=== PATIENT | male | born 1990 | race Hispanic/Latino ===

== ENCOUNTER 2022-05-05 21:16 | Emergency (ER) | payer OTHER ==
--- OUTSIDE RECORDS SUMMARY | 2022-05-05 21:22 | XMS REPORT | Continuity of Care Document ---
:1990 Author Organization [facility] t Address [address] [place] [place] [address] Care Team Providers Name Role Phone SHINE ANTONIO Primary Care Physician Unavailable [email or web address] Attending Clinician Unavailable SHINE ANTONIO Attending Clinician Unavailable DARI POLLARD Attending Clinician Unavailable CHAVA TILLMAN Attending Clinician Unavailable DANYEL RETANA Attending Clinician Unavailable Danyel Dias Attending Clinician ZANDRA PEOPLES Attending Clinician Unavailable Alfonso Lau MD Attending Clinician Vale Retana MD Attending Clinician VALE RETANA Attending Clinician Unavailable Yamil Brown DO Attending Clinician Physician, No Primary or Family Admitting Clinician UnavailDANYEL Ross Admitting Clinician Unavailable Payers Payer Name Policy Type Policy Number Effective Date Expiration Date S ource PLANNED P [id number] 2016 [employer] 00:00:00 INC.-Medical Problems Condition Condition Condition Status Onset Resolution Last Treating Co mments Source Name Details Category Date Date Treatment Clinician Date No known No known Disease Unive rs active active ity of problems problems [facility] Allergies, Adverse Reactions, Alerts Allergy Allergy Status Severity Reaction(s) Onset Inactive Treating Comm ents Source Name Type Date Date Clinician No Known DA Active [facility] 03-24 [facility] 00:00: e 00 [facility] No Known DA Active U [facility] Allergie 09-16 [facility] 00:00: e 00 [facility] No Known DA Active U [facility] Allergie 09-16 [facility] 00:00: e 00 [facility] No Known DA Active U 2018-09 [facility] Allergie 10-23 [facility] 00:00: e 00 [facility] No Known DA Active U 2018-09 [facility] Allergie 10-23 [facility] 00:00: e 00 [facility] NO KNOWN Drug Active Univers ALLERGIE Class ity of S [facility] NO KNOWN Allergy Active [facility] Social History Social Habit Start Date Stop Date Quantity Comments Source Exposure to Not sure [facility] SARS-CoV-2 (event) Medica l Branch Sex Assigned At [birth year] [facility] 00:00:00 00:00:00 [facility] Smoking Status Start Date Stop Date Source Unknown if ever smoked [facility] Medications Ordered Filled Start Stop Current Ordering Indication Dosage Frequency Signature Comments Components Source Medication Medication Date Date Medication? Clinician (SIG) Name Name codeine-gua No 10mL 10 mL, Uni vers ifenesin 11-11 Oral, ity of (ROBITUSSIN 04:15: 03:18 [place] 10-100 00 :00 dose, On Medic al mg/5 mL Fri Branch oral 11/10/21 at solution 10 2215, ALIZE mL NaCl 0.9% 2021- No 1000mL at 999 Uni vers (NS) bolus 11-11 mL/hr, ity of infusion 03:00: 03:20 1,000 mL, Benjamin as 1,000 mL 00 :00 IV Medical Infusion, Branch ONCE, 1 dose, On 11/10/21 at 2100, ALIZE aspirin 2021- No 325mg 325 mg, Unive rs tablet 325 11-11 Oral, ity of mg 03:00: 02:08 ONCE, 1 [place] 00 :00 dose, On Medical Fri Branch 11/10/21 at 2100, ALIZE ofloxacin 2019-09 Yes [id number] 1[drp] Place 1 Univers 0.3 % 0-13 Drop in ity of ophthalmic 00:00: [place] solution 00 4 (four) Medical times Branch daily. ofloxacin 2019-09 Yes [id number] 1[drp] Place 1 Univers 0.3 % 0-13 Drop in ity of ophthalmic 00:00: [place] solution 00 4 (four) Medical times Branch daily. tetracaine 2019-09 2020- No 1[drp] 1 Drop, U nivers (PONTOCAINE 0-11 -11 Left Eye, it y of ) 0.5 % 02:00: 01:17 ONCE, 1 [place] ophthalmic 00 :00 dose, Sat Medi basim drops 1 06/25/20 Branch Drop at 2100, ALIZE fluorescein 2019-09 2020- No 1{strip 1 Strip, Univers (FUL-ZURI) 0-11 11 } Left Eye, ity of ophthalmic 02:00: 01:17 ONCE, 1 [place] as strip 1 00 :00 dose, Sat Medical Strip 06/25/20 Branch at 2100, ALIZE
Fa culty member approving Non-formul selvin medication : VALE RETANA
Reason for non-formul selvin use: ALLERGY TO FORMULARY ALTERNATIV ES polymyxin B 2019-09 Yes [id number] 1[drp] Place 1 Univers sulf-trimet 0-10 [id number] Drop in ity of hoprim 00:00: left eye [place] (POLYTRIM) 00 every 4 Medica l 10,000 (four) Branch unit- 1 hours. mg/mL ophthalmic drops diclofenac 2019-09 Yes [id number] 1[drp] Place 1 Univers 0.1 % 0-10 [id number] Drop in ity of ophthalmic 00:00: left eye 4 [place] solution 00 (four) Medical times Branch daily. polymyxin B 2019-09 Yes [id number] 1[drp] Place 1 Univers sulf-trimet 0-10 [id number] Drop in ity of hoprim 00:00: left eye [place] (POLYTRIM) 00 every 4 Medica l 10,000 (four) Branch unit- 1 hours. mg/mL ophthalmic drops diclofenac 2019- Yes [id number] 1[drp] Place 1 Univers 0.1 % 0-10 [id number] Drop in ity of ophthalmic 00:00: left eye [place] solution 00 (four) Medical times Branch daily. polymyxin B 2019-09 Yes [id number] 1[drp] Place 1 Univers sulf-trimet 0-10 [id number] Drop in ity of hoprim 00:00: left eye [place] (POLYTRIM) 00 every 4 Medica l 10,000 ([facility]) Branch unit- 1 hours. mg/mL ophthalmic drops diclofenac 2019-09 Yes [id number] 1[drp] Place 1 Univers 0.1 % 0-10 [id number] Drop in ity of ophthalmic 00:00: left eye [place] solution 00 (four) Medical times Branch daily. methylpredn 2019-09 2020- No 125mg 125 mg, U nivers isolone sod 0-02 10-02 Slow IV ity of succ 01:30: 02:21 Push, [place] (SOLU-MEDRO 00 :00 ONCE, 1 Medic al L) dose, [facility] Branch injection 06/16/20 at 125 mg 2029, STAT predniSONE 2019-09 Yes [id number] 2 - 20 mg Univers 20 mg 0-01 tabs po x ity of tablet 00:00: [address] diazePAM 2019- Yes [id number] 5mg Take 1 Un joesph (VALIUM) 5 0-01 tablet by ity of mg tablet 00:00: mouth 3 [place] (three) Medical times [place] daily. predniSONE 2019- Yes [id number] 2 - 20 mg Univers 20 mg 0-01 tabs po x ity of tablet 00:00: [address] Branch diazePAM 2019- Yes [id number] 5mg Take 1 Un joesph (VALIUM) 5 0-01 tablet by ity of mg tablet 00:00: mouth 3 [place] (three) Medical times Branch daily. predniSONE 2019- Yes [id number] 2 - 20 mg Univers 20 mg 0-01 tabs po x ity of tablet 00:00: [address] diazePAM 2019- Yes [id number] 5mg Take 1 Un joesph (VALIUM) 5 0-01 tablet by ity of mg tablet 00:00: mouth 3 [place] (three) Medical times Branch daily. predniSONE 2019-09 Yes [id number] 2 - 20 mg Univers 20 mg 0-01 tabs po x ity of tablet 00:00: 5 days [place] [address] Medical Branch diazePAM 2019-09 Yes [id number] 5mg Take 1 Un joesph (VALIUM) 5 0-01 tablet by ity of mg tablet 00:00: mouth 3 [place] [address] (three) Medical times Branch daily. Vital Signs Vital Name Observation Time Observation Value Comments Source Systolic blood 2021-11-11 05:30:00 134 mm[Hg] Univer sity of [facility] Diastolic blood 2021-11-11 05:30:00 85 mm[Hg] Unive rsity of [facility] Heart rate 2021-11-11 05:30:00 90 /min Universi ty [facility] Respiratory rate 2021-11-11 05:30:00 15 /min [facility] saturation in 2021-11-11 05:30:00 98 /min University of Arterial blood by [facility] Pulse oximetry Branch Body temperature 2021-11-11 01:44:00 36.67 Mere [facility] Body height 2021-11-11 01:44:00 172.7 cm Universi ty [facility] Body weight 2021-11-11 01:44:00 [facility] BMI 2021-11-11 01:44:00 42.57 kg/m2 Universi [facility] HEIGHT 2020-07-01 17:35:00 172.7 cm WEIGHT 2020-07-01 17:35:00 122.471 kg HEIGHT 2020-07-01 17:35:00 172.7 cm WEIGHT 2020-07-01 17:35:00 122.471 kg Systolic blood 2020 03:00:00 119 mm[Hg] Univer sity of [facility] Diastolic blood 2020 03:00:00 74 mm[Hg] Unive rsity of [facility] Heart rate 2020 03:00:00 87 /min Universi ty [facility] Respiratory rate 2020 03:00:00 17 /min [facility] O[facility] saturation in 2020 03:00:00 98 /min University of Arterial blood by [facility] [place] [facility] basim Pulse oximetry Branch Body temperature 2020-06-28 23:58:00 37.06 Mere Univ ersity [facility] [place] [facility] Body height 2020-06-28 23:58:00 172.7 cm Universi ty [facility] [place] [facility] Body weight 2020-06-28 23:58:00 122.471 kg Universi ty [facility] [place] [facility] BMI 2020-06-28 23:58:00 41.05 kg/m2 Universi ty [facility] [place] [facility] Systolic blood 2020 03:00:00 119 mm[Hg] Univer sity of pressure [place] [facility] Diastolic blood 2020 03:00:00 74 mm[Hg] Unive rsity of pressure [place] [facility] Heart rate 2020 03:00:00 87 /min Universi ty [facility] [place] [facility] Respiratory rate 2020 03:00:00 17 /min Univ ersity [facility] [place] [facility] Oxygen saturation in 2020 03:00:00 98 /min University of Arterial blood by [facility] [place] [facility] basim Pulse oximetry Branch Body temperature 2020-06-28 23:58:00 37.06 Mere Univ ersity [facility] [place] [facility] Body height 2020-06-28 23:58:00 172.7 cm Universi ty [facility] [place] [facility] Body weight 2020-06-28 23:58:00 122.471 kg Universi ty [facility] [place] [facility] BMI 2020-06-28 23:58:00 41.05 kg/m2 Universi ty [facility] [place] [facility] Systolic blood 2020-06-26 02:04:55 166 mm[Hg] Univer sity of pressure [place] [facility] Diastolic blood 2020-06-26 02:04:55 90 mm[Hg] Unive rsity of pressure [place] [facility] Heart rate 2020-06-26 02:04:55 90 /min Universi ty [facility] [place] [facility] Body temperature 2020-06-26 02:04:55 36.83 Mere Univ ersity [facility] [place] [facility] Respiratory rate 2020-06-26 02:04:55 22 /min Univ ers[facility] [place] [facility] Oxygen saturation in 2020-06-26 02:04:55 99 /min University of Arterial blood by [facility] [place] [facility] basim Pulse oximetry Branch Body height 2020-06-26 00:08:00 175.3 cm Universi ty [facility] [place] [facility] Body weight 2020-06-26 00:08:00 122.471 kg Universi ty [facility] [place] [facility] BMI 2020-06-26 00:08:00 39.87 kg/m2 Universi ty [facility] [place] [facility] Systolic blood 2020-06-26 02:04:55 166 mm[Hg] Univer sity of pressure [place] [facility] Diastolic blood 2020-06-26 02:04:55 90 mm[Hg] Unive rsity of pressure [place] [facility] Heart rate 2020-06-26 02:04:55 90 /min Universi ty [facility] [place] [facility] Body temperature 2020-06-26 02:04:55 36.83 Mere Univ ersity [facility] [place] [facility] Respiratory rate 2020-06-26 02:04:55 22 /min Univ ers[facility] [place] [facility] Oxygen saturation in 2020-06-26 02:04:55 99 /min University of Arterial blood by [facility] [place] [facility] basim Pulse oximetry Branch Body height 2020-06-26 00:08:00 175.3 cm [facility]i ty [facility] [place] [facility] Body weight 2020-06-26 00:08:00 122.471 kg Universi ty [facility] [place] [facility] BMI 2020-06-26 00:08:00 39.87 kg/m2 Universi ty [facility] [place] [facility] Systolic blood 2020-06-17 03:22:44 139 mm[Hg] Univer sity of pressure [place] [facility] Diastolic blood 2020-06-17 03:22:44 85 mm[Hg] Unive rsity of pressure [place] [facility] Heart rate 2020-06-17 03:22:44 87 /min Universi ty [facility] [place] [facility] Respiratory rate 2020-06-17 03:22:44 15 /min Univ ersity [facility] [place] [facility] Oxygen saturation in 2020-06-17 03:22:44 99 /min University of Arterial blood by [place] [employer] basim Pulse oximetry Branch Body temperature 2020-06-17 00:08:00 36.78 Mere Univ ersity [facility] [place] [facility] Body height 2020-06-17 00:08:00 172.7 cm Universi ty [facility] [place] [facility] Body weight 2020-06-17 00:08:00 122.471 kg Universi ty [facility] [place] [facility] BMI 2020-06-17 00:08:00 41.05 kg/m2 [facility]i [facility] [place] [facility] Systolic blood 2020-06-17 03:22:44 139 mm[Hg] Univer sity of pressure [place] [facility] Diastolic blood 2020-06-17 03:22:44 85 mm[Hg] [facility] Heart rate 2020-06-17 03:22:44 87 /min [facility] Respiratory rate 2020-06-17 03:22:44 15 /min [facility] Oxygen saturation in 2020-06-17 03:22:44 99 /min [facility] Arterial blood by [facility] Pulse oximetry Branch Body temperature 2020-06-17 00:08:00 36.78 Mere [facility] Body height 2020-06-17 00:08:00 172.7 cm [facility] Body weight 2020-06-17 00:08:00 122.471 kg [facility] BMI 2020-06-17 00:08:00 41.05 kg/m2 [facility] Procedures Procedure Date / Time Performing Clinician Source Performed TROPONIN I 2021-11-11 04:48:00 Danyel [facility] COVID-19 (ID NOW RAPID 2021-11-11 03:20:00 Danyel Retana [facility] TESTING) [facility] URINE DRUG (IMMUNOASSAY) 2021-11-11 02:27:00 Venkatesh Retana [facility] DRUG Medical [facility] SCREEN W/O REFLEX XR CHEST 1 VW 2021-11-11 02:09:17 Danyel [facility] TROPONIN I 2021-11-11 02:03:00 Danyel [facility] COMP. METABOLIC PANEL 2021-11-11 02:03:00 Danyel Retana [facility] ([id number]) [facility] D-DIMER 2021-11-11 02:03:00 Danyel [facility] CBC WITH DIFF 2021-11-11 02:02:00 Danyel [facility] COMP. METABOLIC PANEL 2020 01:36:00 Alfonso Lau [facility] ([id number]) [facility] CBC WITH DIFF 2020 01:36:00 Alfonso Lau [facility] URINALYSIS 2020 01:36:00 Alfonso Lau [facility] EXTRA TUBE URINE CULTURE 2020 01:36:00 Alfonso Lau [facility] TROPONIN I 2020-06-17 02:21:00 Kevin [facility] HEPATIC FUNCTION PANEL 2020-06-17 02:21:00 Kevin [facility] ([id number]) (ALB,T.PRO,BILI Medical Branch T,BU/BC,ALT,AST,ALK PHOS) BASIC METABOLIC PANEL 2020-06-17 02:21:00 Kevin [facility] (NA, K, CL, CO2, Medical Branch GLUCOSE, BUN, CREATININE, CA) CBC WITH DIFF 2020-06-17 02:21:00 Kevin [facility] EKG-12 LEAD 2020-06-17 00:19:31 Kevin [facility] Encounters Start End Encounter Admission Attending Care Care Encounter Source Date/Time Date/Time Type Type Clinicians Facility Department ID 2021 [facility] [id number] [facility] 20:16:40 [id number] [facility] 2020-09-29 Inpatient [facility] [id number] [facility] 12:35:[id number] [facility] 2019-09-18 Inpatient [facility] [id number] [facility] 02:42:00 [facility] 2019-09-16 Inpatient [facility] ALL[facility] [id number] [facility] 15:22:00 [facility] 2022-04-17 2022-04-17 Outpatient PACO, [facility] [id number] [place] 00:00:00 00:00:00 [facility] 2022-03-29 2022-03-29 Outpatient PACO, [facility] [id number] [place] 00:00:00 00:00:00 [facility] 2022-03-22 2022-03-22 Outpatient PACO, [facility] [id number] [place] 00:00:00 00:00:00 [facility] 2022-02-19 2022-02-19 Outpatient PACO, [facility] [id number] Gerald 07:08:25 23:59:00 [facility] 2022-02-19 2022-02-19 Outpatient [facility] [id number] [place] 00:00:00 00:00:00 [facility] 2022-02-05 2022-02-05 Outpatient [facility] [id number] [place] 10:23:56 11:02:32 [facility] 2022-01-12 2022-01-12 Emergency LATRICE, [facility] MED [id number] [place] 17:34:00 17:35:00 [facility] 2022-01-12 2022-01-12 Emergency [facility] [id number] [place] 16:34:45 17:02:23 [facility] 2022-01-09 2022-01-09 Outpatient [facility] [id number] [place] 13:41:24 13:56:42 [facility] 2022-01-09 2022-01-09 Outpatient [facility] [id number] [place] 13:28:03 13:31:31 [facility] 2022-01-09 2022-01-09 Outpatient [facility] [id number] [place] 12:36:07 12:36:07 [facility] 2022-01-09 2022-01-09 Outpatient 3 PACO, [facility] [id number] [place] 12:36:07 12:36:07 [facility] 2022-01-09 2022-01-09 Outpatient [facility] [id number] [place] 00:00:00 00:00:00 [facility] 2022-01-04 2022-01-04 Outpatient [facility] [id number] [place] 11:24:33 12:34:24 [facility] 2022-01-04 2022-01-04 Outpatient 3 [facility] [id number] [place] 11:24:33 12:34:24 [facility] 2022-01-04 2022-01-04 Outpatient [facility] [id number] [place] 00:00:00 00:00:00 [facility] 2021-12-13 2021-12-[address] [facility] [id number] [place] 05:22:00 05:23:00 CHAVA Simon 2021-11-10 2021-11-10 Emergency X MUTENDEREKI [facility] ERT [id number] Univers 19:39:00 23:42:00 , DANYEL ity of [facility] 2021-11-10 2021-11-10 Emergency Mutendereki [facility] [id number] Univers 19:39:00 23:42:00 , Danyel HEALTH [id number] ity [place] [id number] [address] ([facility]) 2020-07-01 2020-07-01 Emergency ER SLE Emergency [id number] [facility] 17:26:00 17:26:00 2020-06-28 2020-06-28 Emergency [facility] [id number] Univers 19:00:00 23:14:00 [facility] [id number] [id number] [id number] [address] ([facility]) 2020-06-28 2020-06-28 Emergency [facility] [id number] 19:00:00 23:14:00 [facility] [id number] [place] [id number] [place] [id number] [address]) 2020-06-28 2020-06-28 Emergency X [facility] ERT [id number] Univers 19:00:00 19:00:00 ity of [facility] 2020-06-25 2020-06-25 Emergency [facility] [id number] Univers 19:10:00 21:06:00 [facility] Health [id number] [id number] [id number] [address] ([facility]) 2020-06-25 2020-06-25 Emergency [facility], [facility] [id number] 19:10:00 21:06:00 [facility] [id number] [place] [id number] [place] [id number] [place] [address] ([facility]) 2020-06-25 2020-06-25 Emergency X MAZIN [facility] ERT [id number] Univers 19:10:00 19:10:00 VALE [facility] 2020-06-16 2020-06-16 Emergency Kevin CAANDREW [id number] Univers 19:18:00 23:33:00 [facility] [id number] [id number] [id number] [facility] 014 Branch ([facility]) 2020-06-16 2020-06-16 Emergency Kevin CAANDREW [id number] 19:18:00 23:33:00 [facility] [id number] [place] [id number] [place] [id number] [facility] 014 ([facility]) 2020-06-16 2020-06-16 Emergency X [facility] ERT [id number] Univers 18:45:00 18:45:00 [facility] 2018-10-24 2018-10-24 Emergency [facility] [id number] [place] 13:33:32 13:33:32 Health Results Test Description Test Time Test Comments Results Result Comments Source RPR Ser-Titr 2022-01-09 22:39:53 Test Item Value Reference Range Interpretation Comme nts T pallidum Ab Ser Ql Aggl (test code = 27093-2) NEGATIVE Negati ve, Equivocal Reagin+T pallidum IgG+IgM SerPl-Imp (test code = NEGATIVE Negat steven 17425-7) SARS-CoV-2 ORF1ab Resp Ql KIRA+[id number] 19:45:45 Test Item Value Reference Range Interpretation Comments Symptomatic as Yes defined by CDC? (test code = 33717-2) Date of Symptom Onset [id number]:0 (test code = 70113-8) 0:00Z Hospitalized? (test No code = 05925-8) ICU? (test code = No 50632-9) Employed in No Healthcare? (test code = 60473-9) Resident in a No congregate care setting (including nursing homes, residential care for people with intellectual and developmental disabilities, psychiatric treatment facilities, group homes, board and care homes, homeless mcfp, foster care or other): (test code = 85319-8) SARS-CoV-2 ORF1ab NOT DETECTED Not Detected INTERPRETA TION: No Resp Ql KIRA+probe detectable levels (test code = 36849-5) of MARA S-CoV-2 Coronavirus (COVID-19) were present in this patient's sampl e by this test. A not detected result does not exclude the possibility of active infectio n with this virus due to other factors that ma y affect the resu lts such as a poorl y collected sampl e, viral titers be low the limit of detection of th e assay, and the infrequent possibility of inhibitors in t he sample. This result should b e interpreted in conjunction wit h clinical, radiographic, a nd other laborator y findings and should not be u sed as the sole indicator of active infectio n with SARS-CoV-2 Coronavirus (COVID-19). COMMENT: This [employer] SARS-CoV-2 molecular diagnostic assay utilizes [employer] Mediated Amplification (TMA) technology to rapidly detect the SARS-CoV-2 (COVID-19) virus from respiratory samples. In accordance with the FDA's guidance document "Policy for Diagnostic Tests for Coronavirus Disease- 2019 during the Public Health Emergency", this test was developed, and its performance characteristics were verified by the [facility] molecular diagnostics laboratory and is authorized for clinical diagnostic use. This laboratory is certified under the Clinical Laboratory Improvement Amendments (CLIA) as qualified to perform high complexity clinical laboratory testing.TROPONIN [id number] 05:22:18 Test Item Value Reference Interpretation Comments Range TROPONIN I (test 0.005 ng/mL See_Comment [Automated code = 9907424110) message] The system which generated this result transmitted reference range : <=0.034. The reference range was not used to interpret this result as normal/abnormal . MARIANN (test code = Reference (Normal) MARIANN) Range (defined by the 99th percentile reference limit): <= 0.034 ng/mL Note: Cardiac troponin begins to rise 3-4 hours after the onset of ischemia. Repeat in 4-6 hours if the sample was drawn within 3-4 hours of the onset of the symptom and found normal. Diagnosis of myocardial injury is made with acute changes in cTn concentrations with at least one serial sample above the 99th percentile upper reference limit (URL), taken together with the patient's clinical presentation. Biotin has been reported to cause a negative bias, interpret results relative to patient's use of biotin. Lab Interpretation Normal (test code = 89269-0) [facility] [id number] 02:53:20 Test Item Value Reference Interpretation Comments Range TROPONIN I (test 0.003 ng/mL See_Comment [Automated code = [id number]) message] The system which generated this result transmitted reference range : <=0.034. The reference range was not used to interpret this result as normal/abnormal . MARIANN (test code = Reference (Normal) MARIANN) Range (defined by the 99th percentile reference limit): <= 0.034 ng/mL Note: Cardiac troponin begins to rise 3-4 hours after the onset of ischemia. Repeat in 4-6 hours if the sample was drawn within 3-4 hours of the onset of the symptom and found normal. Diagnosis of myocardial injury is made with acute changes in cTn concentrations with at least one serial sample above the 99th percentile upper reference limit (URL), taken together with the patient's clinical presentation. Biotin has been reported to cause a negative bias, interpret results relative to patient's use of biotin. Lab Interpretation Normal (test code = 06348-6) [facility]OL[facility] PAN[facility] (00532)2021-11-11 02:43:16 Test Item Value Reference Range Interpretation Comments NA (test code = 136 mmol/L 135-145 8934395073) K (test code = 3.8 mmol/L 3.5-5.0 1601239270) CL (test code = 101 mmol/L 98-108 9147617966) CO2 TOTAL (test code = 22 mmol/L 23-31 L 4626312546) AGAP (test code = 2-16 5197218672) BUN (test code = 11 mg/dL 7-23 3001196728) GLUCOSE (test code = 157 mg/dL 70-110 H 4518516445) CREATININE (test code = 0.87 mg/dL 0.60-1.25 1230778629) TOTAL BILI (test code = 0.8 mg/dL 0.1-1.0 1949593735) CALCIUM (test code = 9.3 mg/dL 8.6-10.6 4980084415) T PROTEIN (test code = 7.9 g/dL 6.3-8.2 8528386739) ALBUMIN (test code = 4.8 g/dL 3.5-5.0 9864646798) ALK PHOS (test code = 108 U/L 34-122 9038306918) ALTv (test code = 50 U/L 5-50 1742-6) AST(SGOT) (test code = 46 U/L 13-40 H 2848344789) eGFR (test code = mL/min/1.73m2 3055667724) MARIANN (test code = MARIANN) Association of Glomerular Filtration Rate (GFR) and Staging of Kidney Disease* + --+ --+ ------+| GFR (mL/min/1.73 m2) ?| With Kidney Damage ?| ?Without Kidney Damage+ --------+ --------+ +| ?>90 ?| ?Stage one ?| ? Normal ?+ ---+ ---+ -------+| ?60-89 ?| ?Stage two ?| ? Decreased GFR ? + --+ --+ ------+| ?30-59 ?| ?Stage three ?| ? Stage three ? + --+ --+ ------+| ?15-29 ?| ?Stage four ? | ? Stage four ?+ ---+ ---+ -------+| ?<15 (or dialysis) ? ?| ?Stage five ? | ? Stage five ?+ ---+ ---+ -------+ *Each stage assumes the associated GFR level has been in effect for at least three months. ?Stages 1 to 5, with or without kidney disease, indicate chronic kidney disease. Notes: Determination of stages one and two (with eGFR >59mL/min/1.73 m2) requires estimation of kidney damage for at least three months as defined by structural or functional abnormalities of the kidney, manifested by either:Pathological abnormalities or Markers of kidney damage (including abnormalities in the composition of the blood or urine or abnormalities in imaging tests). Lab Interpretation Abnormal (test code = 64338-5) [facility]-[id number] 02:32:59 Test Item Value Reference Interpretation Comments Range D-DIMER (test code = See_Comment [Autom ated 0658243440) message] The system which generated this result transmitted reference range : <0.50 ?g/mL (FEU). The reference range was not used to interpret this result as normal/abnormal . MARIANN (test code = This test may be MARIANN) used in conjunction with a clinical pretest probability (PTP) assessment model to exclude venous thromboembolism (VTE) in patients suspected of deep venous thrombosis (DVT) and pulmonary embolism (PE) A D-Dimer value less than 0.50 ?g/ml (FEU) has a negative predicative value of 96 to 100% (95% CI)and 97 to 100% (95% CI) as an aid in the diagnosis of deep vein thrombosis (DVT) and pulmonary embolism when there is low or moderate pretest probability of PE or DVT. D-Dimer values are expressed in initial fibrinogen equivalent units (FEU)" The assay results should be used with other information, including the clinical context, in forming a diagnosis. Lab Interpretation Normal (test code = 26952-0) [facility] WITH [id number] 02:21:15 Test Item Value Reference Range Interpretation Comments WBC (test code = See_Comment [Automated 1490-2) message] The sy stem which generated this result transmitted reference range : 4.20 - 10.70 10*3/?L. The reference range was not used to interpret this result as normal/abnormal . RBC (test code = See_Comment [Automated 458-8) message] The sy stem which generated this result transmitted reference range : 4.26 - 5.52 10*6/?L. The reference range was not used to interpret this result as normal/abnormal . HGB (test code = 16.5 g/dL 12.2-16.4 H 718-7) HCT (test code = 48.7 % 38.4-49.3 4544-3) MCV (test code = 92.2 fL 81.7-95.6 787-2) MCH (test code = 31.3 pg 26.1-32.7 785-6) MCHC (test code = 33.9 g/dL 31.2-35.0 786-4) RDW-SD (test code = 41.7 fL 38.5-51.6 61492-2) RDW-CV (test code = 12.2 % 12.1-15.4 788-0) PLT (test code = See_Comment [Automated 777-3) message] The sy stem which generated this result transmitted reference range : 150 - 328 10*3/ ?L. The reference r gus was not used to interpret this result as normal/abnormal . MPV (test code = 10.5 fL 9.8-13.0 24975-9) NRBC/100 WBC (test See_Comment [Automat ed code = 2309072480) message] The system which generated this result transmitted reference range : 0.0 - 10.0 /100 WBCs. The refer ence range was not u sed to interpret th is result as normal/abnormal . NRBC x10^3 (test code <0.01 See_Comment [Auto mated = 3842109120) message] The s ystem which generated this result transmitted reference range : 10*3/?L. The reference range was not used to interpret this result as normal/abnormal . GRAN MAT (NEUT) % 81.4 % (test code = 770-8) IMM GRAN % (test code 0.40 % = 6733486928) LYMPH % (test code = 12.0 % 736-9) MONO % (test code = 4.5 % 5905-5) EOS % (test code = 1.0 % 713-8) BASO % (test code = 0.7 % 706-2) GRAN MAT x10^3(ANC) 8.58 10*3/uL 1.99-6.95 H (test code = 9451078281) IMM GRAN x10^3 (test 0.04 10*3/uL 0.00-0.06 code = 3312731106) LYMPH x10^3 (test code 1.26 10*3/uL 1.09-3.23 = 731-0) MONO x10^3 (test code 0.47 10*3/uL 0.36-1.02 = 742-7) EOS x10^3 (test code = 0.10 10*3/uL 0.06-0.53 711-2) BASO x10^3 (test code 0.07 10*3/uL 0.01-0.09 = 704-7) Lab Interpretation Abnormal (test code = 88283-2) [facility] W WO [id number] 15:01:00 [facility]Name: DANYEL BARTH : 1990 Sex: M Name: DANYEL BARTH [facility] : 1990 Age/S: 30 / M [address] [facility] Unit [facility]: [id number] Loc: [place] [address] Phys: Manuel Candelaria NP Acct: [id number] Dis Date: Status: REG ER PHONE #: [phone] Exam Date: 09/29/2020 1440 FAX #: [phone] Reason: RIGHT UPPER AND LOWER ABD WITH RIGHT FLANK PAIN EXAMS: CPT CODE: [id number] CT ABD PELVIS W WO CONT 71144 REASON FOR EXAM: RIGHT UPPER AND LOWER ABD WITH RIGHT FLANK PAIN EXAM ORDER DATE: 09/29/2020 12:45 PM Ordering M.DKiersten: Manuel Candelaria NP PROCEDURE: Axial CT images were acquired through the abdomen/pelvis at 5 mm intervals. Sagittal and coronal reformatted images were generated. Automated exposure control was utilized for this reduction. Phases of contrast: venous and delayed. Additionally precontrast images were also obtained COMPARISON: Abdominal ultrasound September 18, 2019 FINDINGS: Visualized thorax: Normal Hepatobiliary system: Hepatic steatosis. Gallbladder is within normal limits Pancreas: Normal Spleen: Normal Adrenal glands: Normal Genitourinary system: Precontrast images demonstrate a punctate stone in theurinary bladder at the ureterovesical junction (). Additionally there is mild right-sided hydroureteronephrosis. Reproductive organs are within normal limits Gastrointestinal tract and appendix: Mild colonic diverticulosis without diverticulitis. Stomach and small bowel and appendix are within normal limits Abdominal vascular structures: Normal Peritoneum and retroperitoneum: No free fluid or free air. No omental or mesenteric masses. No abnormal lymph nodes. 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 Location: [facility] at 1501 Reported and signed by: [facility]: Manuel Candelaria NP Technologist:Johanny Zhao RT(R); MARGRET Guidry CTDI: DLP: Trnscb Date/Time: 09/29 (1501) [email or web address] Orig Print D/T: S: 09/29/2020 (1505) PAGE 2 Signed ReportBASIC METABOLIC [id number] 13:36:00 Test Item Value Reference Range Interpretation Comments SODIUM (test code = 139 mmol/L 136-145 N NA) POTASSIUM (test code 4.1 mmol/L 3.5-5.1 N = K) CHLORIDE (test code = 106.0 mmol/L 98-107 N CL) CARBON DIOXIDE (test 27.0 mmol/L 21-32 N code = CO2) ANION GAP (test code 10.1 10-20 N = GAP) GLUCOSE (test code = 121 mg/dL 74-106 H GLU) BLOOD UREA NITROGEN 16 mg/dL 7-18 N (test code = BUN) GLOMERULAR FILTRATION > 60 mL/min >=60 Estima mary GFR by RATE (test code = using Jaison fied MDRD GFR) formula.Chronic kidney disease is defined as eith er kidney damageor GFR <60 mL/min/1.73 m2 for >3 months. CREATININE (test code 1.10 mg/dL 0.7-1.3 N = CREAT) BUN/CREATININE RATIO 14.2 10-20 N (test code = BUN/CREA) CALCIUM (test code = 8.7 mg/dL 8.5-10.1 N CA) HEPATIC FUNCTION [id number] 13:36:00 Test Item Value Reference Range Interpretation Comments TOTAL PROTEIN (test 7.8 gram/dL 6.4-8.2 N code = PROT) ALBUMIN (test code = 3.9 g/dL 3.4-5.0 N ALB) GLOBULIN (test code = 3.9 gram/dL 2.7-4.2 N GLOB) ALBUMIN/GLOBULIN RATIO 1.0 0.75-1.50 N (test code = A/G) BILIRUBIN TOTAL (test 0.30 mg/dL 0.0-1.0 N code = BILT) BILIRUBIN DIRECT (test 0.13 mg/dL 0.0-0.20 N code = BILD) SGOT/AST (test code = 24 IUnit/L 15-37 N AST) SGPT/ALT (test code = 46 IUnit/L 12-78 N ALT) ALKALINE PHOSPHATASE 145 IUnit/L 45-117 H Note change in TOTAL (test code = reference range due ALKP) to change in reagent. [id number] 13:36:00 Test Item Value Reference Range Interpretation Comments LIPASE (test code = LIP) 121 U/L 73.0-393.0 N BASIC METABOLIC [id number] 13:27:00 Test Item Value Reference Range Interpretation Comments SODIUM (test code = NA) 139 mmol/L 136-145 N POTASSIUM (test code = K) 4.1 mmol/L 3.5-5.1 N CHLORIDE (test code = CL) 106.0 mmol/L 98-107 N CARBON DIOXIDE (test code = CO2) mmol/L 21-32 ANION GAP (test code = GAP) 10-20 GLUCOSE (test code = GLU) mg/dL 74-106 BLOOD UREA NITROGEN (test code = mg/dL 7-18 BUN) GLOMERULAR FILTRATION RATE (test mL/min >=60 code = GFR) CREATININE (test code = CREAT) mg/dL 0.7-1.3 BUN/CREATININE RATIO (test code 10-20 = BUN/CREA) CALCIUM (test code = CA) mg/dL 8.5-10.1 HEPATIC FUNCTION [id number] 13:27:00 Test Item Value Reference Range Interpretation Comments TOTAL PROTEIN (test code = PROT) gram/dL 6.4-8.2 ALBUMIN (test code = ALB) g/dL 3.4-5.0 GLOBULIN (test code = GLOB) gram/dL 2.7-4.2 ALBUMIN/GLOBULIN RATIO (test code = 0.75-1.50 A/G) BILIRUBIN TOTAL (test code = BILT) mg/dL 0.0-1.0 BILIRUBIN DIRECT (test code = BILD) mg/dL 0.0-0.20 SGOT/AST (test code = AST) IUnit/L 15-37 SGPT/ALT (test code = ALT) IUnit/L 12-78 ALKALINE PHOSPHATASE TOTAL (test IUnit/L 45-117 code = ALKP) [id number] 13:27:00 Test Item Value Reference Range Interpretation Comments LIPASE (test code = LIP) U/L 73.0-393.0 URINALYSIS [id number] 13:14:00 Test Item Value Reference Range Interpretation Comments UA COLOR (test code = Light-Yellow YELLOW COLU) UA APPEARANCE (test code CLEAR CLEAR = APPU) UA GLUCOSE DIPSTICK (test NEGATIVE mg/dL NEGATIVE code = DGLUU) UA BILIRUBIN DIPSTICK NEGATIVE mg/dL NEGATIVE (test code = BILU) UA KETONE DIPSTICK (test NEGATIVE mg/dL NEGATIVE code = KETU) UA SPECIFIC GRAVITY (test 1.022 1.001-1.035 code = SGU) UA BLOOD DIPSTICK (test 0.5 mg/dL (2+) mg/dL NEGATIVE A code = INNA) UA PH DIPSTICK (test code 5.0 5.0-8.0 = HALEY) UA PROTEIN DIPSTICK (test NEGATIVE mg/dL NEGATIVE code = PROU) UA UROBILINIOGEN DIPSTICK Normal mg/dL NEGATIVE (test code = URO) UA NITRITE DIPSTICK (test NEGATIVE NEGATIVE code = SHONA) UA LEUKOCYTE ESTERASE W NEGATIVE Phan/uL NEGATIVE REFLEX (test code = LEUUR) UA WBC (test code = WBCU) 0-5 per HPF 0-5 UA RBC (test code = RBCU) 21-50 #/HPF 0-5 UA EPITHELIAL CELLS (test FEW per HPF FEW code = EPIU) UA BACTERIA (test code = FEW #/HPF NONE A BACU) UA MUCUS (test code = FEW #/LPF FEW MUCU) Urine Source? Clean CatchURINALYSIS [id number] 13:08:00 Test Item Value Reference Range Interpretation Comments UA COLOR (test code = Light-Yellow YELLOW COLU) UA APPEARANCE (test code CLEAR CLEAR = APPU) UA GLUCOSE DIPSTICK (test NEGATIVE mg/dL NEGATIVE code = DGLUU) UA BILIRUBIN DIPSTICK NEGATIVE mg/dL NEGATIVE (test code = BILU) UA KETONE DIPSTICK (test NEGATIVE mg/dL NEGATIVE code = KETU) UA SPECIFIC GRAVITY (test 1.022 1.001-1.035 code = SGU) UA BLOOD DIPSTICK (test 0.5 mg/dL (2+) mg/dL NEGATIVE A code = INNA) UA PH DIPSTICK (test code 5.0 5.0-8.0 = HALEY) UA PROTEIN DIPSTICK (test NEGATIVE mg/dL NEGATIVE code = PROU) UA UROBILINIOGEN DIPSTICK Normal mg/dL NEGATIVE (test code = URO) UA NITRITE DIPSTICK (test NEGATIVE NEGATIVE code = SHONA) UA LEUKOCYTE ESTERASE W NEGATIVE Phan/uL NEGATIVE REFLEX (test code = LEUUR) UA WBC (test code = WBCU) per HPF 0-5 UA RBC (test code = RBCU) per HPF 0-5 UA EPITHELIAL CELLS (test per HPF Few code = EPIU) UA BACTERIA (test code = per HPF NONE BACU) Urine Source? Clean CatchCBC W/O [id number] 13:02:00 Test Item Value Reference Range Interpretation Comments WHITE BLOOD CELL (test code = 8.4 K/mm3 4.5-12.5 N WBC) RED BLOOD CELL (test code = 5.03 mill/mm3 4.0-5.8 N RBC) HEMOGLOBIN (test code = HGB) 15.5 gram/dL 13.0-17.5 N HEMATOCRIT (test code = HCT) 47.2 % 42.0-52.0 N MEAN CELL VOLUME (test code = 93.8 fL 80-98 N MCV) MEAN CELL HGB (test code = MCH) 30.8 picogram 27.0-33.0 N MEAN CELL HGB CONCETRATION 32.8 gram/dL 33.0-36.0 L (test code = MCHC) RED CELL DISTRIBUTION WIDTH 11.9 % 11.6-16.2 N (test code = RDW) PLATELET COUNT (test code = 210 K/mm3 150-450 N PLT) MEAN PLATELET VOLUME (test code 10.9 fL 6.7-11.0 N = MPV) BLOOD [id number] 00:00:00 Test Item Value Reference Range Interpretation Comments CULTURE (BEAKER) (test No growth in 5 days code = 1095) BLOOD [id number] 00:00:00 Test Item Value Reference Range Interpretation Comments CULTURE (BEAKER) (test No growth in 5 days code = 1095) EYE CULTURE + GRAM [id number] 09:58:00 Test Item Value Reference Range Interpretation Comments CULTURE (BEAKER) (test code No growth = 1095) GRAM STAIN RESULT (BEAKER) 1+ WBCs (test code = 1123) GRAM STAIN RESULT (BEAKER) No organisms seen (test code = 142867) COMPREHENSIVE METABOLIC [id number] 21:41:00 Test Item Value Reference Range Interpretation Comments TOTAL PROTEIN 7.5 gm/dL 6.0-8.3 (BEAKER) (test code = 770) ALBUMIN (BEAKER) 4.3 g/dL 3.5-5.0 (test code = 1145) ALKALINE PHOSPHATASE 127 U/L 40-150 (BEAKER) (test code = 346) BILIRUBIN TOTAL 0.4 mg/dL 0.2-1.2 (BEAKER) (test code = 377) SODIUM (BEAKER) (test 138 meq/L 136-145 code = 381) POTASSIUM (BEAKER) 4.0 meq/L 3.5-5.1 (test code = 379) CHLORIDE (BEAKER) 105 meq/L 98-107 (test code = 382) CO2 (BEAKER) (test 24 meq/L 22-29 code = 355) BLOOD UREA NITROGEN 14 mg/dL 7-21 (BEAKER) (test code = 354) CREATININE (BEAKER) 0.97 mg/dL 0.57-1.25 (test code = 358) GLUCOSE RANDOM 112 mg/dL 70-105 H (BEAKER) (test code = 652) CALCIUM (BEAKER) 8.6 mg/dL 8.4-10.2 (test code = 697) AST (SGOT) (BEAKER) 24 U/L 5-34 (test code = 353) ALT (SGPT) (BEAKER) 30 U/L 6-55 (test code = 347) EGFR (BEAKER) (test 92 mL/min/1.73 ESTIMA MARY GFR IS code = 1092) sq m NOT ACCURATE CREATININE CLEARANCE IN PREDICTING GLOMERULAR FILTRATION RATE . ESTIMATED GFR I S NOT APPLICABLE FOR DIALYSIS PATIEN TS. Benefits Specialist Recruiter ID - BSC-REACTIVE [id number] 21:41:00 Test Item Value Reference Range Interpretation Comments C-REACTIVE PROTEIN (BEAKER) (test 0.94 mg/dL 0.00-0.50 H code = 676) Benefits Specialist Recruiter ID - BSCBC W/PLT COUNT & AUTO [id number] 21:10:00 Test Item Value Reference Range Interpretation Comments WHITE BLOOD CELL COUNT (BEAKER) 6.3 K/ L 3.5-10.5 (test code = 775) RED BLOOD CELL COUNT (BEAKER) 5.09 M/ L 4.63-6.08 (test code = 761) HEMOGLOBIN (BEAKER) (test code = 15.4 GM/DL 13.7-17.5 410) HEMATOCRIT (BEAKER) (test code = 47.4 % 40.1-51.0 411) MEAN CORPUSCULAR VOLUME (BEAKER) 93.1 fL 79.0-92.2 H (test code = 753) MEAN CORPUSCULAR HEMOGLOBIN 30.3 pg 25.7-32.2 (BEAKER) (test code = 751) MEAN CORPUSCULAR HEMOGLOBIN CONC 32.5 GM/DL 32.3-36.5 (BEAKER) (test code = 752) RED CELL DISTRIBUTION WIDTH 11.7 % 11.6-14.4 (BEAKER) (test code = 412) PLATELET COUNT (BEAKER) (test 184 K/CU MM 150-450 code = 756) MEAN PLATELET VOLUME (BEAKER) 10.7 fL 9.4-12.4 (test code = 754) NUCLEATED RED BLOOD CELLS 0 /100 WBC 0-0 (BEAKER) (test code = 413) NEUTROPHILS RELATIVE PERCENT 65 % (BEAKER) (test code = 429) LYMPHOCYTES RELATIVE PERCENT 24 % (BEAKER) (test code = 430) MONOCYTES RELATIVE PERCENT 6 % (BEAKER) (test code = 431) EOSINOPHILS RELATIVE PERCENT 4 % (BEAKER) (test code = 432) BASOPHILS RELATIVE PERCENT 1 % (BEAKER) (test code = 437) NEUTROPHILS ABSOLUTE COUNT 4.10 K/ L 1.78-5.38 (BEAKER) (test code = 670) LYMPHOCYTES ABSOLUTE COUNT 1.49 K/ L 1.32-3.57 (BEAKER) (test code = 414) MONOCYTES ABSOLUTE COUNT (BEAKER) 0.37 K/ L 0.30-0.82 (test code = 415) EOSINOPHILS ABSOLUTE COUNT 0.26 K/ L 0.04-0.54 (BEAKER) (test code = 416) BASOPHILS ABSOLUTE COUNT (BEAKER) 0.04 K/ L 0.01-0.08 (test code = 417) IMMATURE GRANULOCYTES-RELATIVE 0 % 0-1 PERCENT (BEAKER) (test code = 2801) URINALYSIS W/ REFLEX URINE [id number] 19:20:00 Test Item Value Reference Range Interpretation Comments COLOR (BEAKER) (test code = 470) Light Yellow CLARITY (BEAKER) (test code = Clear 469) SPECIFIC GRAVITY UA (BEAKER) 1.017 1.001-1.035 (test code = 468) PH UA (BEAKER) (test code = 467) 7.0 5.0-8.0 PROTEIN UA (BEAKER) (test code = Negative Negative 464) GLUCOSE UA (BEAKER) (test code = Negative Negative 365) KETONES UA (BEAKER) (test code = Negative Negative 371) BILIRUBIN UA (BEAKER) (test code Negative Negative = 462) BLOOD UA (BEAKER) (test code = Negative Negative 461) NITRITE UA (BEAKER) (test code = Negative Negative 465) LEUKOCYTE ESTERASE UA (BEAKER) Negative Negative (test code = 466) UROBILINOGEN UA (BEAKER) (test 2.0 mg/dL 0.2-1.0 H code = 463) RBC UA (BEAKER) (test code = < /HPF 519) WBC UA (BEAKER) (test code = 2 /HPF 520) SOURCE(BEAKER) (test code = 2795) Benefits Specialist Recruiter ID - [auto]Benefits Specialist Recruiter ID - [id number] 02:08:00 Test Item Value Reference Range Interpretation Comments APPEARANCE (test code = Clear Clear 7278572063) COLOR (test code = Yellow Yellow 3429590336) PH (test code = 4.8-8.0 6202587511) SP GRAVITY (test code = 1.003-1.030 1551760737) GLU U QUAL (test code = Normal Normal 5741497461) BLOOD (test code = Negative Negative 8473145260) KETONES (test code = Negative Negative 6906069175) PROTEIN (test code = Negative Negative 2887-8) UROBILIN (test code = 4.0 mg/dL Normal A 1691158183) BILIRUBIN (test code = Negative Negative 4085934166) NITRITE (test code = Negative Negative 7190640895) LEUK OBDULIO (test code = Negative Negative 3124563447) RBC/HPF (test code = See_Comment [Autom ated message] 1862658552) The system [employer] generated this result transmit mary reference range : 0 - 3 HPF. The refe rence range was not u sed to interpret th is result as normal/abnormal . WBC/HPF (test code = See_Comment H [Autom ated message] 7183686524) The system [employer] generated this result transmit mary reference range : 0 - 5 HPF. The refe rence range was not u sed to interpret th is result as normal/abnormal . BACTERIA (test code = Negative Negative 3803740914) MUCOUS (test code = Slight Negative LPF A 4639174527) SQ EPITH (test code = <1 See_Comment [Auto mated message] 8836635793) The system [employer] generated this result transmit mary reference range : <=2 HPF. The refere nce range was not u sed to interpret th is result as normal/abnormal . Lab Interpretation (test Abnormal code = 53904-4) [facility]. METABOLIC PANEL ([id number])2020 02:00:00 Test Item Value Reference Range Interpretation Comments NA (test code = 138 mmol/L 135-145 5537857906) K (test code = 4.3 mmol/L 3.5-5 7388954534) CL (test code = 102 mmol/L 98-108 8440610643) CO2 TOTAL (test code = 28 mmol/L 23-31 2968805803) AGAP (test code = 2-16 6055685996) BUN (test code = 18 mg/dL 7-23 3325426043) GLUCOSE (test code = 86 mg/dL 70-110 2706882560) CREATININE (test code 1.00 mg/dL 0.6-1.25 = 5076714859) TOTAL BILI (test code 0.5 mg/dL 0.1-1.1 = 9432405937) CALCIUM (test code = 9.2 mg/dL 8.6-10.6 3804169002) T PROTEIN (test code = 7.7 g/dL 6.3-8.2 2542044028) ALBUMIN (test code = 4.6 g/dL 3.5-5 5511974718) ALK PHOS (test code = 117 U/L 34-122 6124272313) ALTv (test code = 32 U/L 5-50 2-6) AST(SGOT) (test code = 29 U/L 13-40 1869065409) eGFR Calculation mL/min/1.73m2 (Non-) (test code = 8385848041) eGFR Calculation mL/min/1.73m2 () (test code = 6672566215) MARIANN (test code = MARIANN) Association of Glomerular Filtration Rate (GFR) and Staging of Kidney Disease* + -+ + ---+| GFR (mL/min/1.73 m2) ?| With Kidney Damage ?| ?Without Kidney Damage+ -------+ ------+ ---------+| ?>90 ?| ?Stage one ?| ? Normal ?+ --+ -+ ----+| ?60-89 ?| ?Stage two ?| ? Decreased GFR ? + -+ + ---+| ?30-59 ?| ?Stage three ?| ? Stage three ? + -+ + ---+| ?15-29 ?| ?Stage four ? | ? Stage four ?+ --+ -+ ----+| ?<15 (or dialysis) ? ?| ?Stage five ? | ? Stage five ?+ --+ -+ ----+ *Each stage assumes the associated GFR level has been in effect for at least three months. ?Stages 1 to 5, with or without kidney disease, indicate chronic kidney disease. Notes: Determination of stages one and two (with eGFR >59mL/min/1.73 m2) requires estimation of kidney damage for at least three months as defined by structural or functional abnormalities of the kidney, manifested by either:Pathological abnormalities or Markers of kidney damage (including abnormalities in the composition of the blood or urine or abnormalities in imaging tests). [facility] WITH [id number] 01:43:00 Test Item Value Reference Range Interpretation Comments WBC (test code = See_Comment [Automated 9090-2) message] The sy stem which generated this result transmitted reference range : 4.20 - 10.70 10*3/?L. The reference range was not used to interpret this result as normal/abnormal . RBC (test code = See_Comment [Automated 789-8) message] The sy stem which generated this result transmitted reference range : 4.26 - 5.52 10*6/?L. The reference range was not used to interpret this result as normal/abnormal . HGB (test code = 16.7 g/dL 12.2-16.4 H 718-7) HCT (test code = 48.9 % 38.4-49.3 4544-3) MCV (test code = 92.4 fL 81.7-95.6 787-2) MCH (test code = 31.6 pg 26.1-32.7 785-6) MCHC (test code = 34.2 g/dL 31.2-35 786-4) RDW-SD (test code = 40.8 fL 38.5-51.6 03043-8) RDW-CV (test code = 11.9 % 12.1-15.4 L 788-0) PLT (test code = See_Comment [Automated 777-3) message] The sy stem which generated this result transmitted reference range : 150 - 328 10*3/ ?L. The reference r gus was not used to interpret this result as normal/abnormal . MPV (test code = 10.9 fL 9.8-13 31261-9) NRBC/100 WBC (test See_Comment [Automat ed code = [id number]) message] The system which generated this result transmitted reference range : 0.0 - 10.0 /100 WBCs. The refer ence range was not u sed to interpret th is result as normal/abnormal . NRBC x10^3 (test code <0.01 See_Comment [Auto mated = [id number]) message] The s ystem which generated this result transmitted reference range : 10*3/?L. The reference range was not used to interpret this result as normal/abnormal . GRAN MAT (NEUT) % 64.5 % (test code = 770-8) IMM GRAN % (test code 0.70 % = [id number]) LYMPH % (test code = 19.3 % 736-9) MONO % (test code = 12.5 % 5905-5) EOS % (test code = 2.4 % 713-8) BASO % (test code = 0.6 % 706-2) GRAN MAT x10^3(ANC) 4.34 10*3/uL 1.99-6.95 (test code = [id number]) IMM GRAN x10^3 (test 0.05 10*3/uL 0-0.06 code = [id number]) LYMPH x10^3 (test code 1.30 10*3/uL 1.09-3.23 = 731-0) MONO x10^3 (test code 0.84 10*3/uL 0.36-1.02 = 742-7) EOS x10^3 (test code = 0.16 10*3/uL 0.06-0.53 711-2) BASO x10^3 (test code 0.04 10*3/uL 0.01-0.09 = 704-7) Lab Interpretation Abnormal (test code = 73066-0) [facility] [id number] 02:54:00 Test Item Value Reference Range Interpretation Comments TROPONIN I (test 0.001 ng/mL See_Comment [Automated code = 1376260695) message] The system which generated this result transmitted reference range : <=0.034. The reference range was not used to interpret this result as normal/abnormal . MARIANN (test code = Equal or Less than MARIANN) 0.034 ng/ml---Normal ?Note: Cardiac troponin begins to rise 3-4 hours after the onset of ischemia. Repeat in 4-6 hours if the sample was drawn within 3-4 hours of the onset of the symptom and found normal. Between 0.035 and 0.120 ng/mL--- Borderline. Questionable myocardial injury or necrosis ? ?Note: Serial measurement may be necessary to confirm or exclude the diagnosis of myocardial injury or necrosis; Clinical correlation (symptoms, EKGs, imaging studies, and others) required; Repeat in 4-6 hours if clinically indicated. ? Equal or Higher than 0.121 ng/mL---Abnormal. Myocardial Injury or Necrosis Likely ? Biotin has been reported to cause a negative bias, interpret results relative to patient's use of biotin. ? Lab Interpretation Normal (test code = 66252-4) [facility] Met[facility] (NA, K, CL, CO2, GLUCOSE, BUN, CREATININE, CA)2020-06-17 02:42:00 Test Item Value Reference Range Interpretation Comments NA (test code = 139 mmol/L 135-145 3846778446) K (test code = 4.1 mmol/L 3.5-5 2800648443) CL (test code = 103 mmol/L 98-108 9278834926) CO2 TOTAL (test code = 28 mmol/L 23-31 5999138974) AGAP (test code = 2-16 6616355712) BUN (test code = 16 mg/dL 7-23 7158932106) GLUCOSE (test code = 87 mg/dL 70-110 7040967171) CREATININE (test code 0.86 mg/dL 0.6-1.25 = 1824575844) CALCIUM (test code = 9.4 mg/dL 8.6-10.6 8212942230) eGFR Calculation mL/min/1.73m2 (Non-) (test code = 2184234384) eGFR Calculation mL/min/1.73m2 () (test code = 7053411603) MARIANN (test code = MARIANN) Association of Glomerular Filtration Rate (GFR) and Staging of Kidney Disease* + -+ + ---+| GFR (mL/min/1.73 m2) ?| With Kidney Damage ?| ?Without Kidney Damage+ -------+ ------+ ---------+| ?>90 ?| ?Stage one ?| ? Normal ?+ --+ -+ ----+| ?60-89 ?| ?Stage two ?| ? Decreased GFR ? + -+ + ---+| ?30-59 ?| ?Stage three ?| ? Stage three ? + -+ + ---+| ?15-29 ?| ?Stage four ? | ? Stage four ?+ --+ -+ ----+| ?<15 (or dialysis) ? ?| ?Stage five ? | ? Stage five ?+ --+ -+ ----+ *Each stage assumes the associated GFR level has been in effect for at least three months. ?Stages 1 to 5, with or without kidney disease, indicate chronic kidney disease. Notes: Determination of stages one and two (with eGFR >59mL/min/1.73 m2) requires estimation of kidney damage for at least three months as defined by structural or functional abnormalities of the kidney, manifested by either:Pathological abnormalities or Markers of kidney damage (including abnormalities in the composition of the blood or urine or abnormalities in imaging tests). [facility] (ALB, T.PRO, BILI T, BU/BC, ALT, AST, ALK PHOS)2020-06-17 02:42:00 Test Item Value Reference Range Interpretation Comments TOTAL BILI (test code = 2865543172) 0.4 mg/dL 0.1-1.1 BILI UNCON (test code = 6972682447) 0.3 mg/dL 0.1-1.1 BILI CONJ (test code = 8799775501) 0.0 mg/dL 0-0.3 T PROTEIN (test code = 9804313841) 7.4 g/dL 6.3-8.2 ALBUMIN (test code = 1218980782) 4.4 g/dL 3.5-5 ALK PHOS (test code = 1749088310) 117 U/L 34-122 ALTv (test code = 1742-6) 31 U/L 5-50 AST(SGOT) (test code = 5609168839) 30 U/L 13-40 Lab Interpretation (test code = Normal 70095-4) [facility] with [id number] 02:37:00 Test Item Value Reference Range Interpretation Comments WBC (test code = See_Comment [Automated 6690-2) message] The sy stem which generated this result transmitted reference range : 4.20 - 10.70 10*3/?L. The reference range was not used to interpret this result as normal/abnormal . RBC (test code = See_Comment [Automated 789-8) message] The sy stem which generated this result transmitted reference range : 4.26 - 5.52 10*6/?L. The reference range was not used to interpret this result as normal/abnormal . HGB (test code = 15.6 g/dL 12.2-16.4 718-7) HCT (test code = 45.3 % 38.4-49.3 4544-3) MCV (test code = 92.4 fL 81.7-95.6 787-2) MCH (test code = 31.8 pg 26.1-32.7 785-6) MCHC (test code = 34.4 g/dL 31.2-35 786-4) RDW-SD (test code = 40.2 fL 38.5-51.6 64920-3) RDW-CV (test code = 11.9 % 12.1-15.4 L 788-0) PLT (test code = See_Comment [Automated 777-3) message] The sy stem which generated this result transmitted reference range : 150 - 328 10*3/ ?L. The reference r gus was not used to interpret this result as normal/abnormal . MPV (test code = 10.9 fL 9.8-13 46505-9) NRBC/100 WBC (test See_Comment [Automat ed code = 3650305731) message] The system which generated this result transmitted reference range : 0.0 - 10.0 /100 WBCs. The refer ence range was not u sed to interpret th is result as normal/abnormal . NRBC x10^3 (test code <0.01 See_Comment [Auto mated = 5746925328) message] The s ystem which generated this result transmitted reference range : 10*3/?L. The reference range was not used to interpret this result as normal/abnormal . GRAN MAT (NEUT) % 68.9 % (test code = 770-8) IMM GRAN % (test code 0.50 % = 6264674012) LYMPH % (test code = 19.5 % 736-9) MONO % (test code = 7.1 % 5905-5) EOS % (test code = 3.3 % 713-8) BASO % (test code = 0.7 % 706-2) GRAN MAT x10^3(ANC) 5.66 10*3/uL 1.99-6.95 (test code = 1112230756) IMM GRAN x10^3 (test 0.04 10*3/uL 0-0.06 code = 2955815481) LYMPH x10^3 (test code 1.60 10*3/uL 1.09-3.23 = 731-0) MONO x10^3 (test code 0.58 10*3/uL 0.36-1.02 = 742-7) EOS x10^3 (test code = 0.27 10*3/uL 0.06-0.53 711-2) BASO x10^3 (test code 0.06 10*3/uL 0.01-0.09 = 704-7) Lab Interpretation Abnormal (test code = 25831-5) [facility] US ABDOMEN [id number] 04:31:00 Name: DANYEL BARTH [facility] : 1990 Age/S: 29 / M [address] [facility] Unit #: [id number] Loc: [place] [address] Phys: Sofya Verduzco [employer]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 STATEMENT: Study technically limited by bowel gas and patient body habitus. FINDINGS: PANCREAS: Obscured by bowel gas. GALLBLADDER: Contracted and therefore not optimally visualized. No obvious stones, sludge, or wall thickening. There is no pericholecystic fluid. COMMON BILE DUCT: 3.4 mm, normal caliber. LIVER: Diffusely echogenic and difficultto penetrate. No focal mass or enlargement. Portal vein is patent with appropriate hepatopedal flow.RIGHT KIDNEY: Unremarkable. OTHER: There is no ascites. IMPRESSION: 1. Fatty liver. 2. No biliary dilatation. 3. Gallbladder is contracted but grossly unremarkable. at 0431 Reported and signed by: Patience Amaya MD CC: Sofya Verduzco NP; Delisa uGo MD Technologist: GHANSHYAM FALLON RDMS Trnmeb Date/Time: 09/18/2019 (043) [email or web address] Orig Print D/T: S: 09/18/2019 (0434) Probe: PAGE 1 Signed ReportCBC W/O [id number] 04:28:00 Test Item Value Reference Range Interpretation Comments WHITE BLOOD CELL (test code = 8.9 K/mm3 4.5-12.5 N WBC) RED BLOOD CELL (test code = 4.91 mill/mm3 4.0-5.8 N RBC) HEMOGLOBIN (test code = HGB) 15.5 gram/dL 13.0-17.5 N HEMATOCRIT (test code = HCT) 45.3 % 42.0-52.0 N MEAN CELL VOLUME (test code = 92.3 fL 80-98 N MCV) MEAN CELL HGB (test code = MCH) 31.6 picogram 27.0-33.0 N MEAN CELL HGB CONCETRATION 34.2 gram/dL 33.0-36.0 N (test code = MCHC) RED CELL DISTRIBUTION WIDTH 11.8 % 11.6-16.2 N (test code = RDW) PLATELET COUNT (test code = 189 K/mm3 150-450 N PLT) MEAN PLATELET VOLUME (test code 11.0 fL 6.7-11.0 N = MPV) BASIC METABOLIC [id number] 04:19:00 Test Item Value Reference Range Interpretation Comments SODIUM (test code = 140 mmol/L 136-145 N NA) POTASSIUM (test code 4.3 mmol/L 3.5-5.1 N = K) CHLORIDE (test code = 106.0 mmol/L 98-107 N CL) CARBON DIOXIDE (test 29.0 mmol/L 21-32 N code = CO2) ANION GAP (test code 9.3 10-20 L = GAP) GLUCOSE (test code = 151 mg/dL 74-106 H GLU) BLOOD UREA NITROGEN 15 mg/dL 7-18 N (test code = BUN) GLOMERULAR FILTRATION > 60 mL/min >=60 Estima mary GFR by RATE (test code = using Jaison fied MDRD GFR) formula.Chronic kidney disease is defined as eith er kidney damageor GFR <60 mL/min/1.73 m2 for >3 months. CREATININE (test code 1.10 mg/dL 0.7-1.3 N = CREAT) BUN/CREATININE RATIO 13.6 10-20 N (test code = BUN/CREA) CALCIUM (test code = 8.7 mg/dL 8.5-10.1 N CA) HEPATIC FUNCTION [id number] 04:19:00 Test Item Value Reference Range Interpretation Comments TOTAL PROTEIN (test 7.4 gram/dL 6.4-8.2 N code = PROT) ALBUMIN (test code = 3.6 g/dL 3.4-5.0 N ALB) GLOBULIN (test code = 3.8 gram/dL 2.7-4.2 N GLOB) ALBUMIN/GLOBULIN RATIO 1.0 0.75-1.50 N (test code = A/G) BILIRUBIN TOTAL (test 0.50 mg/dL 0.0-1.0 N code = BILT) BILIRUBIN DIRECT (test 0.18 mg/dL 0.0-0.20 N code = BILD) SGOT/AST (test code = 100 IUnit/L 15-37 H AST) SGPT/ALT (test code = 102 IUnit/L 12-78 H ALT) ALKALINE PHOSPHATASE 157 IUnit/L 45-117 H Note change in TOTAL (test code = reference range due ALKP) to change in reagent. [id number] 04:19:00 Test Item Value Reference Range Interpretation Comments LIPASE (test code = LIP) 100 U/L 73.0-393.0 N BASIC METABOLIC [id number] 04:09:00 Test Item Value Reference Range Interpretation Comments SODIUM (test code = NA) 140 mmol/L 136-145 N POTASSIUM (test code = K) 4.3 mmol/L 3.5-5.1 N CHLORIDE (test code = CL) 106.0 mmol/L 98-107 N CARBON DIOXIDE (test code = CO2) mmol/L 21-32 ANION GAP (test code = GAP) 10-20 GLUCOSE (test code = GLU) mg/dL 74-106 BLOOD UREA NITROGEN (test code = mg/dL 7-18 BUN) GLOMERULAR FILTRATION RATE (test mL/min >=60 code = GFR) CREATININE (test code = CREAT) mg/dL 0.7-1.3 BUN/CREATININE RATIO (test code 10-20 = BUN/CREA) CALCIUM (test code = CA) mg/dL 8.5-10.1 HEPATIC FUNCTION [id number] 04:09:00 Test Item Value Reference Range Interpretation Comments TOTAL PROTEIN (test code = PROT) gram/dL 6.4-8.2 ALBUMIN (test code = ALB) g/dL 3.4-5.0 GLOBULIN (test code = GLOB) gram/dL 2.7-4.2 ALBUMIN/GLOBULIN RATIO (test code = 0.75-1.50 A/G) BILIRUBIN TOTAL (test code = BILT) mg/dL 0.0-1.0 BILIRUBIN DIRECT (test code = BILD) mg/dL 0.0-0.20 SGOT/AST (test code = AST) IUnit/L 15-37 SGPT/ALT (test code = ALT) IUnit/L 12-78 ALKALINE PHOSPHATASE TOTAL (test IUnit/L 45-117 code = ALKP) [id number] 04:09:00 Test Item Value Reference Range Interpretation Comments LIPASE (test code = LIP) U/L 73.0-393.0 URINALYSIS [id number] 04:04:00 Test Item Value Reference Range Interpretation Comments UA COLOR (test code = COLU) YELLOW YELLOW UA APPEARANCE (test code = CLEAR CLEAR APPU) UA GLUCOSE DIPSTICK (test NEGATIVE mg/dL NEGATIVE code = DGLUU) UA BILIRUBIN DIPSTICK (test NEGATIVE mg/dL NEGATIVE code = BILU) UA KETONE DIPSTICK (test NEGATIVE mg/dL NEGATIVE code = KETU) UA SPECIFIC GRAVITY (test 1.025 1.001-1.035 code = SGU) UA BLOOD DIPSTICK (test Negative mg/dL NEGATIVE code = INNA) UA PH DIPSTICK (test code = 6.0 5.0-8.0 HALEY) UA PROTEIN DIPSTICK (test NEGATIVE mg/dL NEGATIVE code = PROU) UA UROBILINIOGEN DIPSTICK 8.0 (3+) mg/dL NEGATIVE A (test code = URO) UA NITRITE DIPSTICK (test NEGATIVE NEGATIVE code = SHONA) UA LEUKOCYTE ESTERASE W NEGATIVE Phan/uL NEGATIVE REFLEX (test code = LEUUR) UA WBC (test code = WBCU) 0-5 per HPF 0-5 UA RBC (test code = RBCU) NONE SEEN #/HPF 0-5 UA EPITHELIAL CELLS (test None seen per HPF FEW code = EPIU) UA BACTERIA (test code = FEW #/HPF NONE A BACU) UA MUCUS (test code = MUCU) FEW #/LPF FEW Urine Source? 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 COMPARISON: None available. Location: TH. No acute infiltrates, effusion or congestion is noted. The cardiac and mediastinal silhouette are within normal limits. IMPRESSION: No acute infiltrates, effusion or congestion. at 2213 Reported andsigned by: Perico Trent M.D. CC: Sofya Verduzco NP Technologist: Ricardo Lomax RT(R) Trnshaun Date/Time/By: 08/22/2019 (7995) : By: [email or web address] PAGE 1 Signed Report
[2022-05-05] MEDS ORDERED: IBUPROFEN 400 MG TAB ONE (21:40)
[2022-05-05 22:34] LABS: Hematocrit 42.3 % (39.6-49.0); Lymphocytes % 8.8 % (15.3-44.8); MPV 9.2 fL (7.6-11.3); RBC Red Blood Cell Count 4.65 M/uL (4.33-5.43)
[2022-05-05 22:51] LABS: ALT/SGPT 41 U/L (12-78); Albumin 3.8 g/dL (3.4-5.0); Alkaline Phosphatase 117 U/L (45-117); BUN Blood Urea Nitrogen 14 mg/dL (7-18); Bicarbonate 25 mmol/L (21-32); Bilirubin Total 0.4 mg/dL (0.2-1.0); Glomerular Filtration Rate 82 ml/min (=/>90); Glucose Level 114 mg/dL (74-106); Protein, Total 7.6 g/dL (6.4-8.2); Sodium Level 136 mmol/L (136-145)
[2022-05-05] MEDS ORDERED: ACETAMINOPHEN 325 MG TABLET ONE (22:55)
[2022-05-05] MEDS ORDERED: NA CHLORIDE 0.9% 2,000 ML ONE (22:56)
[2022-05-05] MEDS ORDERED: CEFTRIAXONE 1000 MG/VIAL ONE (22:56)
[2022-05-05 23:06] LABS: Protime INR 1.12
[2022-05-05 23:09] LABS: AST/SGOT 23 U/L (15-37); Potassium 3.8 mmol/L (3.5-5.1); Troponin High Sensitivity < 3.0 pg/mL (<58.9)
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
[2022-05-06 01:16] LABS: Urine Blood 2+ (Negative); Urine Glucose Negative (Negative); Urine Protein Negative (Negative); Urine Specific Gravity <=1.005 (1.005-1.030)
[2022-05-06 02:10] LABS: Urine Blood ND (Negative); Urine Glucose Negative (Negative); Urine Protein Negative (Negative); Urine Specific Gravity 1.005 (1.005-1.030)
[2022-05-06 06:10] VITALS: O2SAT 100
[2022-05-06 06:13] VITALS: BP 144/94
[2022-05-06 06:14] VITALS: TEMP 97
--- NOTE | 2022-05-07 08:10 | EKG ---
Test Date: 2022-05-05 Test Time: 22:04:59 Bilingual Hr Generalist: JANN MEASUREMENT RESULTS: Intervals: Rate: 108 TN: 196 QRSD: 88 QT: 328 QTc: 439 [place]: P: 12 TN: 196 QRS: 41 T: 14 INTERPRETIVE STATEMENTS: Sinus tachycardia Otherwise normal ECG No previous ECG available for comparison Electronically Signed On 05-07-22 08:06:40 CDT by Pradeep Stevens
--- NOTE | 2022-05-07 10:29 | RAD REPORT ---
EXAM DESCRIPTION: RAD - Chest Single View - 05/05/2022 10:51 pm CLINICAL HISTORY: 31 years Male, SOB TECHNIQUE: 1 view (Single frontal view of the chest) COMPARISON: None. FINDINGS: LINES AND TUBES: None. CARDIOVASCULAR STRUCTURES: Normal heart size. No pulmonary venous congestion. LUNGS: No confluent areas of acute consolidation. PLEURA: No layering pleural effusions. No pneumothorax. BONES: No acute osseous abnormality of the thorax. IMPRESSION: No acute cardiopulmonary disease. Electronically signed by: Jae Casillas MD 05/05/2022 11:20 PM CDT Due to temporary technical issues with the PACS/Fluency reporting system, reports are being signed by the in house radiologists without review as a courtesy to insure prompt reporting. The interpreting radiologist is fully responsible for the content of the report.
--- NOTE | 2022-05-07 10:35 | RAD REPORT ---
EXAM DESCRIPTION: CT - Abdomen Pelvis W Contrast - 05/06/2022 3:36 am CLINICAL HISTORY: 31 years Male, lower abdominal pain, fever TECHNIQUE: Helical CT axial images are obtained from the lung bases to the pubic symphysis with IV c ontrast. No oral contrast was administered. Multiplanar reconstruction. This exam was performed accor ding to our departmental dose-optimization program, which includes automated exposure control, adjust ment of the mA and/or kV according to patient size and/or use of iterative reconstruction technique. COMPARISON: None. FINDINGS: LUNG BASES: No basilar consolidation or effusions. LIVER: Normal in size. Normal attenuation. No focal masses. HEPATOBILIARY: Contracted gallbladder without calcified gallstones. No intra- or extrahepatic ducta l dilatation. SPLEEN: Normal size. PANCREAS: Normal size and contour. No focal mass. ADRENAL GLANDS: Normal size. No adrenal masses. KIDNEYS: Bilateral kidneys are normal in size without obstructing calculi or hydronephrosis. No nep hrolithiasis. No significant cysts are present. No focal solid mass. BOWEL AND MESENTERY: No small or large bowel dilatation. No colonic diverticulosis. Normal appendix . No abnormal mesenteric lymphadenopathy. No free fluid or pneumoperitoneum. RETROPERITONEUM: Normal caliber abdominal aorta without aneurysm. No abnormal retroperitoneal lymphad enopathy. PELVIS: Decompressed urinary bladder secondary to Reilly catheter. Normal-sized prostate gland. ABDOMINAL WALL: Anterior left lower abdominal wall subcutaneous contusion which may be related to inj ection. Remainder of the abdominal wall is otherwise within normal limits. BONES: No suspicious osseous lytic or blastic lesions seen. IMPRESSION: 1. Anterior left lower abdominal wall subcutaneous contusion which may be related to i njection. 2. No acute intra-abdominal or pelvic disease. Normal appendix. Electronically signed by: Jae Casillas MD 05/05/2022 11:26 PM CDT Due to temporary technical issues with the PACS/Fluency reporting system, reports are being signed by the in house radiologists without review as a courtesy to insure prompt reporting. The interpreting radiologist is fully responsible for the content of the report.
== END 2022-05-06 01:32 | disposition home or self-care (01) ==
LOC: ER 21:16
DX: R30.0 Dysuria (principal); R53.83 Other fatigue; R07.9 Chest pain, unspecified; Z20.822 Contact with and (suspected) exposure to COVID-19
CPT/HCPCS: 96365; 93005; 87040 ×2; 87088; 85025; 87086; 36415; 85610; 82565; 83605; 85730; 81003 ×2; 84484; 80053; 87804 ×2; 74177; 71045; 96375; 99285; 96366; U0003; Q9967; J7030; 87077; 87186